=== PATIENT | female | born 1955 | race Caucasian/White ===

== ENCOUNTER 2017-12-23 08:28 | Emergency (ER) | payer OTHER ==
[2017-12-23 08:33] VITALS: BP 111/74; PULSE 74; RESP 20; TEMP 98.3; O2SAT 98
--- NOTE | 2017-12-23 08:48 | C.PDOC ---
History Of Present Illness 62 y/o female presents to ED with complaints of left knee pain since yesterday. 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 Patient reports she has intermittent pain to the left knee for "years" and occasional wears a knee brace but has not been evaluated for symptoms. Patient denies falling, loc, leg swelling, sob or any other complaints at this time. Pts Orthopedist: Dr Smith Time Seen by Provider: 12/23/17 08:41 Chief Complaint (Nursing): Lower Extremity Problem/Injury History Per: Patient History/Exam Limitations: no limitations Onset/Duration Of Symptoms: Days Current Symptoms Are (Timing): Still Present Past Medical History Reviewed: Historical Data, Nursing Documentation, Vital Signs Vital Signs: Last Vital Signs Temp 98.3 F 12/23/17 08:32 Pulse 74 12/23/17 08:32 Resp 20 12/23/17 08:32 BP 111/74 12/23/17 08:32 Pulse Ox 98 12/23/17 10:11 - Medical History PMH: Back Problems Surgical History: No Surg Hx Family History: States: No Known Family Hx - Social History Hx Tobacco Use: No Hx Alcohol Use: No Hx Substance Use: No - Immunization History Hx Tetanus Toxoid Vaccination: Yes Hx Influenza Vaccination: Yes Hx Pneumococcal Vaccination: No Review Of Systems Constitutional: Negative for: Fever, Chills Cardiovascular: Negative for: Chest Pain Respiratory: Negative for: Shortness of Breath Musculoskeletal: Positive for: Leg Pain Skin: Negative for: Rash, Bruising Neurological: Negative for: Weakness, Numbness Physical Exam - Physical Exam Appears: Non-toxic, No Acute Distress Skin: Warm, Dry, No Rash Head: Atraumatic, Normacephalic Eye(s): bilateral: Normal Inspection, EOMI Nose: Normal Oral Mucosa: Moist Neck: Normal ROM, Supple Chest: Symmetrical Respiratory: No Accessory Muscle Use Extremity: Normal ROM, Tenderness (Left medial knee ), No Calf Tenderness, Capillary Refill (<2 seconds) Extremity: Bilateral: Normal ROM Pulses: Left Dorsalis Pedis: Normal, Right Dorsalis Pedis: Normal Neurological/Psych: Oriented x3, Normal Motor, Normal Sensation Gait: Steady ED Course And Treatment O2 Sat by Pulse Oximetry: 98 (RA) Pulse Ox Interpretation: Normal - Other Rad Knee XR X-Ray: Interpreted by Me, Viewed By Me Interpretation: (+) arthirits (-) fx or dislocation Progress Note: Knee brace applied by science technician. Tylenol ordered. Ice applied. Instructed RICe and follow up with ortho in 1-2 days. Disposition - Disposition Referrals: David Smith MD [Staff Provider] - Disposition: HOME/ ROUTINE Disposition Time: 08:46 Condition: STABLE Additional Instructions: Apply ice, rest, and elevate the area. Follow up with your bone doctor or clinic in 2-5 days for further evaluation. Take medications as prescribed. Return to the emergency department at any time if symptoms persist or worsen. Prescriptions: Naproxen [Naprosyn] 1 tab PO BID PRN #20 tab PRN Reason: Pain Instructions: Knee Sprain (ED) Forms: [facility] (Tajik), Work Excuse - Clinical Impression Clinical Impression: Knee sprain - PA / TRIMMER MACHINE / Resident Statement MD/DO has reviewed & agrees with the documentation as recorded. - Scribe Statement The provider has reviewed the documentation as recorded by the Aidenibcarlos Purdy All medical record entries made by the iAdenibcarlos were at my direction and personally dictated by me. I have reviewed the chart and agree that the record accurately reflects my personal performance of the history, physical exam, medical decision making, and the department course for this patient. I have also personally directed, reviewed, and agree with the discharge instructions and disposition.
--- NOTE | 2017-12-23 12:51 | RAD ---
PROCEDURE: Left Knee Radiographs. HISTORY: Pain. COMPARISON: None. FINDINGS: BONES: Diffuse spurring present no fracture noted JOINTS: Tricompartmental arthrosis medial femoral compartment most notably affected. Subchondral cystic changes JOINT EFFUSION: None. OTHER FINDINGS: Posterior calcaneal broad-based spurring blending quadriceps insertional enthesophyte. 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
== END 2017-12-23 09:22 | disposition home or self-care (01) ==
LOC: C.ER 08:28
DX: S83.92XA Sprain of unspecified site of left knee, initial encounter (principal); X50.1XXA Overexertion from prolonged static or awkward postures, initial encounter; Y92.89 Other specified places as the place of occurrence of the external cause

== ENCOUNTER 2018-01-19 06:37 | Day surgery (SDC) | payer OTHER ==
[2018-01-19 06:56] VITALS: O2SAT 100
[2018-01-19] MEDS ORDERED: Propofol 10 mg/ml Inj (20 ML) ONE (08:15)
--- NOTE | 2018-01-19 08:18 | CP.SDSHP ---
Same Day Surgery H & P - History Proposed Procedure: Screening colonoscopy, high risk Pre-Op Diagnosis: Family history of colon cancer - Previous Medical/Surgical History Endocrine/Metabolic: Thyroid Disease Comments: Hyperlipidemia, back pain Previous Surgical History: Tubal ligation - Allergies Allergies: Allergies No Known Allergies Allergy (Verified 01/19/18 06:54) - Current Medications Current Medications: See reconciliation sheet - Physical Exam General Appearance: WD WN female in NAD Vital Signs: Vital Signs 01/19/18 01/19/18 06:45 07:13 Temperature 97.8 F Pulse Rate 67 67 Respiratory 19 Rate Blood Pressure 124/69 O2 Sat by Pulse 100 Oximetry Mental Status: Alert & Oriented x3 Neuro: WNL Heart: WNL Lungs: WNL GI: WNL - {Optional Preform as Required} Abdomen: WNL - Impression Impression: Family history of colon cancer Pt. Evaluated Today:Candidate for Anesthesia & Procedure: Yes - Date & Time Date: 01/19/18 Time: 08:18 Short Stay Discharge - Short Stay Discharge Admitting Diagnosis/Reason for Visit: SCREENING Disposition: HOME/ ROUTINE
[2018-01-19 08:50] VITALS: TEMP 98
[2018-01-19 09:29] VITALS: RESP 12
[2018-01-19 09:43] VITALS: BP 109/63; PULSE 66
== END 2018-01-19 09:41 | disposition home or self-care (01) ==
LOC: C.ENDO 06:37
PROVIDERS: ATTEND Internal Medicine Gastroenterology
DX: Z12.11 Encounter for screening for malignant neoplasm of colon (principal); D12.6 Benign neoplasm of colon, unspecified; D12.2 Benign neoplasm of ascending colon; K57.90 Diverticulosis of intestine, part unspecified, without perforation or abscess without bleeding; K64.8 Other hemorrhoids
CPT/HCPCS: 45380; 88305; C1773; J2704; J7040